=== PATIENT | male | born 1955 | race Caucasian/White ===

== ENCOUNTER 2018-06-17 16:03 | Inpatient (IN) ==
[2018-06-17 17:29] LABS: BASO# 0.03 X1000 (0.0-0.2); BASO% 0.3 % (0.0-0.8); EOS# 0.24 X1000 (0.0-0.7); EOS% 2.1 % (0.0-10.0); HEMATOCRIT 37.5 % (42.0-52.0); HEMOGLOBIN 12.1 g/dL (14.0-18.0); IMM GRAN# 0.04 X1000 (0.0-0.04); IMM GRAN% 0.3 % (0.0-0.5); LYMPH# 2.09 X1000 (1.2-3.4); LYMPH% 18.2 % (20.5-51.1); MCH 27.4 PG (27-31); MCHC 32.3 g/dL (33-37); MCV 84.8 FL (81-99); MONO# 1.58 X1000 (0.11-0.59); MONO% 13.8 % (1.7-9.3); MPV 10.4 FL (7.4-10.4); NEUT# 7.48 X1000 (1.4-6.5); NEUT% 65.3 % (42.2-75.2); PLT 239 X1000 (130-400); RBC 4.42 XMIL (4.7-6.1); RDW 16.9 % (11.5-14.5); WBC 11.46 X1000 (4.8-10.8)
[2018-06-17 17:48] LABS: AGAP 9; ALBUMIN 2.8 g/dL (3.5-5.0); ALKALINE PHOSPHATASE 132 U/L (32-122); BUN 9 mg/dL (8-22); CALCIUM 8.3 mg/dL (8.8-10.2); CHLORIDE 98 mmol/L (98-107); COSMO 278; CREATININE 0.7 mg/dL (0.7-1.2); ESTIMATED GFR > 60; GLUCOSE 101 mg/dL (70-104); GOT 89 U/L (10-34); GPT 32 U/L (10-44); POTASSIUM 3.5 mmol/L (3.5-5.1); SODIUM 140 mmol/L (136-145); TCO2 33 mmol/L (25-35); TOTAL PROTEIN 7.4 g/dL (6.3-8.3)
[2018-06-17 18:24] LABS: INR 1.38; PROTIME 17.7 Seconds (11.0-16.0)
[2018-06-17 18:25] LABS: PTT 34.5 Seconds (22.3-41.8)
--- NOTE | 2018-06-17 18:27 | PROVIDER DOCUMENTATION ---
HPI-Abdominal Pain/GI Problem - General Chief Complaint: Edema Stated Complaint: LIVER FAILURE Time Seen by Provider: 06/17/18 17:59 Source: patient, family Allergies/Adverse Reactions: Patient Allergies Allergy/AdvReac Type Severity Reaction Status Date / Time No Known Allergies Allergy Verified 03/20/18 15:31 Home Medications: Home Medication List Medication Instructions Recorded Confirmed Last Taken Type Alprazolam [Xanax] 0.25 mg PO BID 03/10/18 03/20/18 03/13/18 21:00 History Furosemide 40 mg PO DAILY #30 tab 03/10/18 03/20/18 03/20/18 09:00 Rx Lactulose 30 ml PO TID 03/10/18 03/20/18 03/19/18 20:00 History Metoprolol Succinate 50 mg PO DAILY 03/10/18 03/20/18 03/20/18 09:00 History Omeprazole 40 mg PO DAILY 03/10/18 03/20/18 03/20/18 09:00 History Oxycodone I.r. [Oxy Ir] 5 mg PO Q3H PRN PRN 03/10/18 03/20/18 03/13/18 21:00 History Rifaximin [Xifaxan] 550 mg PO BID 03/10/18 03/20/18 03/20/18 09:00 History Spironolactone [Aldactone] 50 mg PO DAILY #30 tab 03/10/18 03/20/18 03/20/18 09:00 Rx Hydroxyzine Pamoate [Vistaril] 25 mg PO TID PRN PRN #20 cap 03/20/18 Unknown Rx Lactulose 30 ml PO TID #270 ml 03/20/18 Unknown Rx - History of Present Illness-ABD Nature of Presenting Problems: Patient is a 62yo M who presents w/ c/o abdomen swelling, RUQ abdominal pain, bilateral lower extremity swelling, and difficulty urinating x2 weeks. Reports he was admitted at [facility] for 2 months in January 2018 for liver failure and went to Rehab in March 2018. States he was sent home with medication prescriptions for liver failure, however has been unable to afford them as he does not have insurance. C/o only being able to "pee a tablespoon." Patient reports he used to be an alcoholic, however has quit drinking since being diagnosed with liver failure. Patient also reports he feels like his heart is "jumping around." Denies any fever/chills, CP, or SOB. Abdominal Pain Onset Location: reports: RUQ, generalized abdomen Pain Radiation: reports: no radiation Quality of Pain: reports: sharp, throbbing Severity in ED: reports: moderate Onset/Duration: reports: other (2 weeks) Timing: reports: still present, getting worse Activities at Onset: reports: none Exposure to sick contacts?: No Modifying Factors: improves with: nothing Associated Symptoms: reports: genitourinary problems, loss of appetite. denies: chest pain, diaphoresis, fever/chills, nausea, shortness of breath, vomiting Dark Stools Present?: reports: none noticed Rectal Bleeding: reports: none Rectal Pain: reports: none Emesis Description: reports: none Bruising or Bleeding Gums?: No Similar Symptoms Previously?: No Recently seen or treated by another doctor?: No Review of Systems - Adult - REVIEW OF SYSTEMS - ADULT Constitutional: denies: chills, fever Eyes: reports: no symptoms reported Ears, Nose, Mouth & Throat: reports: no symptoms reported Cardiovascular: reports: irregular heart rate. denies: chest pain, syncope Respiratory: denies: cough, shortness of breath Gastrointestinal: reports: see HPI, abdominal pain, poor appetite. denies: nausea, vomiting Genitourinary: reports: see HPI, urinary retention Musculoskeletal: reports: no symptoms reported Integumentary: reports: no symptoms reported Neurological: reports: no symptoms reported Psychiatric: reports: no symptoms reported Endocrine: reports: no symptoms reported All Other Systems: Reviewed and Negative Past History - Adult - PAST MEDICAL HISTORY-ADULT Review of Records: reports: Old Records Reviewed, Nursing Assessment Review, Medications Reviewed Major Childhood Illnesses: reports: denies history Cardiovascular: reports: HTN Respiratory: reports: denies history Gastrointestinal: reports: GERD, liver disease Obstetrical/Gynecological: reports: denies history Genitourinary: reports: denies history Musculoskeletal: reports: denies history Neurological: reports: denies history Psychiatric: reports: denies history Endocrine/Immune: reports: denies history Other Conditions: reports: denies history Additional History: alcoholism, cirrhosis of the liver - PRIOR SURGERIES/PROCEDURES Surgical/Procedure History: reports: none - IMMUNIZATION STATUS Childhood Immunizations: See Nurse Assessment Flu Vaccine: See Nurse Assessment - FAMILY HISTORY Family History: reviewed, not pertinent - SOCIAL HISTORY Alcohol Use Frequency: sober (former use) Physical Exam-General - PHYSICAL EXAM-ADULT Initial Vital Signs Reviewed: Yes - CONSTITUTIONAL General Appearance: alert, mild distress - EYES Eyes: PERRL/EOMI, pink conjunctivae - HEAD, EARS, NOSE, MOUTH & THROAT HENMT: normocephalic/atraumatic, moist mucous membranes - NECK Neck: full range of motion, supple - RESPIRATORY Respiratory: chest non-tender, lungs clear, normal breath sounds, no pleuratic chest pain, no respiratory distress, no accessory muscle use - CARDIOVASCULAR Cardiovascular: no murmur, irregularly irregular. negative: no edema (Bilateral +2 lower extremity edema) - GASTROINTESTINAL (ABDOMEN) Abdominal Exam: distended (ascites), tenderness (RUQ) - LYMPHATIC Lymphatic: no adenopathy - MUSCULOSKELETAL Back Exam: normal inspection Extremity: normal range of motion, non-tender - SKIN Integumentary: warm/dry - NEUROLOGIC Neurologic: grossly normal - PSYCHIATRIC Psych/Mental Status: normal mood/affect, normal thought content, normal thought process, oriented x 3 Progress - PLAN OF CARE/RESULTS Progress/Plan/Lab Results: Vital Signs - 8 hr 06/17/18 16:12 06/17/18 17:57 Temperature 98.7 F Pulse Rate 114 H 102 H Respiratory Rate 20 17 Blood Pressure 126/90 142/104 O2 Sat by Pulse Oximetry 96 94 L Laboratory Results - last 24 hr 06/17/18 06/17/18 06/17/18 17:20 17:20 17:20 WBC 11.46 H RBC 4.42 L Hgb 12.1 L Hct 37.5 L MCV 84.8 MCH 27.4 MCHC 32.3 L RDW Std Deviation 16.9 H Plt Count 239 MPV 10.4 Immature Gran % (Auto) 0.3 Neut % (Auto) 65.3 Lymph % (Auto) 18.2 L Burnet % (Auto) 13.8 H Eos % (Auto) 2.1 Baso % (Auto) 0.3 Immature Gran # (Auto) 0.04 Neut # (Auto) 7.48 H Lymph # (Auto) 2.09 Burnet # (Auto) 1.58 H Eos # (Auto) 0.24 Baso # (Auto) 0.03 Sodium 140 Potassium 3.5 Chloride 98 Carbon Dioxide 33 Anion Gap 9 BUN 9 Creatinine 0.7 Estimated GFR/1.73 m2 > 60 BUN/Creatinine Ratio 13 Glucose 101 Calculated Osmolality 278 Calcium 8.3 L Total Bilirubin 1.30 H AST 89 H ALT 32 Alkaline Phosphatase 132 H Hug-P-Tabpdetafkw Pept 256 H Total Protein 7.4 Albumin 2.8 L Globulin 5.0 Albumin/Globulin Ratio 1.0 Orders Category Date Time Status Nursing- Obtain EKG ONCE Care 06/17/18 18:05 Active Saline Loc NOW Care 06/17/18 16:47 Active AMMONIA [CHEM] Stat Lab 06/17/18 18:07 Ordered BNP [PRO B-NATRIURETIC PEPTIDE] Stat Lab 06/17/18 17:20 Completed CBC WITH DIFF [HEME] Stat Lab 06/17/18 17:20 Completed COMPREHENSIVE METABOLIC PANEL [CHEM] Stat Lab 06/17/18 17:20 Completed MAGNESIUM [CHEM] Stat Lab 06/17/18 17:20 Received PROTIME WITH INR [COAG] Stat Lab 06/17/18 17:20 Received PTT [COAG] Stat Lab 06/17/18 17:[address] W/POSS RFLX CULT [URINALYSIS] Stat Lab 06/17/18 18:07 Uncollected EKG [EKG] Stat Ther 06/17/18 18:05 Ordered Result Diagrams: 06/17/18 17:20 06/17/18 17:20 - CONSULTS/PCP/HOSPITALIST Notification #1 *Consult/PCP/Hospitalist*: MD Jarred Time Discussed: 19:53 Reason/Comments: Ascites/cirrhosis #2 Consult: Emily Estevze Time Discussed: 19:57 Reason/Comments: Ascites, cirrhosis Consult Disposition: Admit Departure - Departure Date of Disposition Decision: 06/17/18 Time of Disposition Decision: 19:57 DIAGNOSIS: Peripheral edema Ascites Qualifiers: Ascites type: due to alcoholic cirrhosis Qualified Code(s): K70.31 - Alcoholic cirrhosis of liver with ascites Cirrhosis Qualifiers: Hepatic cirrhosis type: alcoholic cirrhosis Ascites presence: with ascites Qualified Code(s): K70.31 - Alcoholic cirrhosis of liver with ascites Disposition: ADMITTED INPATIENT 09 Certified Medical Emergency: Emergent Condition: Stable Referrals and Follow-Ups: None,PCP [Primary Care Provider] - - Critical Care Note This patient required my direct & personal management of CC.: No Attestation - Physician/ FLO Attestation Patient care was provided by Advanced Practice Provider:: Yes Advanced Practice Provider:: Nubia Gómez Advanced Practice Provider documentation review:: The Mid-level provider documentation, treatment plan and medical decision making was reviewed by the physician who agrees with all treatment and medical decision making by the MLP. The physician spent face to face time with patient:: No Advanced Practice Provider documentation review:: Supervising physician onsite and consulted in the evaluation and care of this patient. The physician did not have a face to face encounter with the patient.
--- NOTE | 2018-06-17 19:07 | EKG Report ---
Test Performed on : 06/17/2018 6:17:12 PM Test Reason : Irregular HR Blood Pressure : / mmHG Vent. Rate : 123 BPM Atrial Rate : 123 BPM P-R Int : 152 ms QRS Dur : 088 ms QT Int : 382 ms P-R-T Axes : 024 053 013 degrees QTc Int : 546 ms Sinus tachycardia. with premature supraventricular complexes. and fusion complexes Otherwise normal ECG When compared with ECG of 25-DEC-2017 09:03, fusion complexes are now present Unconfirmed Result
[2018-06-17 19:14] LABS: BILIRUBIN URINE 2+ (NEGATIVE); BLOOD URINE NEGATIVE (NEGATIVE); CLARITY CLEAR (CLEAR); COLOR AMBER; GLUCOSE URINE NEGATIVE (NEGATIVE); KETONE URINE 1+(Small) mg/dL (NEGATIVE); LEUKOCYTES URINE TRACE (NEGATIVE); NITRITE URINE NEGATIVE (NEGATIVE); PH URINE 6.5; PROTEIN URINE 1+(30 mg/dL) mg/dL (NEGATIVE); UROBILINOGEN URINE 12 mg/dL
[2018-06-17 19:15] LABS: URINE SOURCE CLEAN CATCH
[2018-06-17 19:16] LABS: URINE EPITHELIAL CELLS >10 /HPF (<10); URINE RBC <10 /HPF (<10); URINE WBC <10 /HPF (<10)
[2018-06-17 19:17] LABS: URINE BACTERIA 1+ /HFP; URINE CAST NONE SEEN /LPF; URINE CRYSTAL NONE SEEN /HPF; URINE YEAST NONE SEEN /HPF
[2018-06-17] MEDS ORDERED: MAGNESIUM SULFATE 2 GM/S.W.I. 2 GM/50 ML IVPB IV ONE (19:27)
[2018-06-17] MEDS ORDERED: MORPHINE IV ONE (20:19)
[2018-06-17] MEDS ORDERED: ATIVAN IV ONE (20:25)
[2018-06-17] MEDS ORDERED: LASIX PO ONE (23:58)
[2018-06-18] MEDS ORDERED: DUONEB (A & A) INH PRN (00:02)
[2018-06-18] MEDS ORDERED: NICODERM PATCH TD PRN (00:05)
[2018-06-18] MEDS: LACTULOSE PO SCH ×3 (00:18→21:32)
[2018-06-18 00:42] LABS: AMYLASE 42 U/L (20-200); GGT 80 U/L (11-50); LIPASE 23 U/L (13-60)
[2018-06-18 00:49] LABS: UR AMPHETAMINES QUAL NONE DETECTED (NONE DETECT); UR BARBITUATES QUAL NONE DETECTED (NONE DETECT); UR BENZODIAZEPIN QUAL PRESUMPTIVE POSITIVE (NONE DETECT); UR COCAINE QUAL NONE DETECTED (NONE DETECT); UR METHADONE QUAL NONE DETECTED (NONE DETECT); UR METHAMPHETAMINE QUAL NONE DETECTED (NONE DETECT); UR OPIATES QUAL PRESUMPTIVE POSITIVE (NONE DETECT); UR OXYCODONE QUAL NONE DETECTED (NONE DETECT)
[2018-06-18 00:50] LABS: UR CANNABINOIDS QUAL NONE DETECTED (NONE DETECT); UR PCP QUAL NONE DETECTED (NONE DETECT); UR PROPOXYPHENE QUAL NONE DETECTED (NONE DETECT); UR TCA QUAL NONE DETECTED (NONE DETECT)
[2018-06-18 06:34] LABS: BASO# 0.03 X1000 (0.0-0.2); BASO% 0.4 % (0.0-0.8); EOS# 0.45 X1000 (0.0-0.7); HEMATOCRIT 34.2 % (42.0-52.0); HEMOGLOBIN 11.2 g/dL (14.0-18.0); IMM GRAN# 0.03 X1000 (0.0-0.04); IMM GRAN% 0.4 % (0.0-0.5); LYMPH# 1.57 X1000 (1.2-3.4); LYMPH% 20.9 % (20.5-51.1); MCH 28.1 PG (27-31); MCHC 32.7 g/dL (33-37); MCV 85.9 FL (81-99); MONO# 1.21 X1000 (0.11-0.59); MONO% 16.1 % (1.7-9.3); MPV 10.9 FL (7.4-10.4); NEUT# 4.21 X1000 (1.4-6.5); NEUT% 56.2 % (42.2-75.2); PLT 215 X1000 (130-400); RBC 3.98 XMIL (4.7-6.1); RDW 16.6 % (11.5-14.5)
[2018-06-18] MEDS ORDERED: PRILOSEC PO SCH (07:00)
[2018-06-18 07:04] LABS: AGAP 7; ALB/GLOB RATIO 0.6; ALBUMIN 2.2 g/dL (3.5-5.0); ALKALINE PHOSPHATASE 107 U/L (32-122); BUN 9 mg/dL (8-22); CHLORIDE 102 mmol/L (98-107); COSMO 281; CREATININE 0.6 mg/dL (0.7-1.2); ESTIMATED GFR > 60; GLUCOSE 84 mg/dL (70-104); GOT 69 U/L (10-34); GPT 24 U/L (10-44); MAGNESIUM 1.7 mg/dL (1.5-2.7); POTASSIUM 3.7 mmol/L (3.5-5.1); SODIUM 142 mmol/L (136-145); TCO2 33 mmol/L (25-35); TOTAL PROTEIN 5.9 g/dL (6.3-8.3)
--- NOTE | 2018-06-18 07:31 | Diag Imaging Result Doc PS360 ---
EXAM: CHEST-PORTABLE HISTORY: SOB TECHNIQUE: Chest single view COMPARISON: 01/13/2018 FINDINGS: The lungs are well expanded. The heart is not enlarged. The vessels are not distended. There are mild increased markings in the left lung base. No effusion identified. IMPRESSION: Scarring versus a small infiltrate in the left lung base. Electronically signed by Asael Ma 06/18/2018 7:29 AM
[2018-06-18] MEDS: XANAX PO PRN (08:20)
[2018-06-18] MEDS ORDERED: SODIUM CHLORIDE 0.9% INJ SCH (08:45)
--- NOTE | 2018-06-18 10:36 | GASTROENTEROLOGY CONSULTATION ---
DATE: 06/18/2018 PRIMARY CARE DOCTOR: None. REASON FOR CONSULTATION: 1. Liver cirrhosis with ascites 2. History of chronic hepatitis C. 3. History of alcoholism. HISTORY OF PRESENT ILLNESS: Mr. Mcclain is a 62-year-old male who was admitted on 06/17/2018 for symptoms of abdominal swelling and ascites and abdominal discomfort. He also complained of bilateral lower extremity swelling and difficulty urinating for the last 2 weeks. He was recently discharged from [facility] [place] in March 2018 after treatment of liver failure. The patient cannot afford his medications as he does not have insurance. He is on disability but his Medicare is applied for. According to the patient, he quit drinking 4 months ago. Prior to that, he used to drink 12 to 18 beers a day as well as half pint to a pint of hard liquor every day. He did that for 40-50 years. He quit about 4 months ago when he was diagnosed with liver failure. The patient also has history of chronic hepatitis C which he attributes to his history of intravenous drug abuse. He quit that for many years. He is currently single and lives alone. The patient denies any nausea, vomiting, vomiting blood, or passing blood in the stools. He denies any fevers, rigors, or chills. PAST MEDICAL HISTORY: 1. Pneumonia. 2. Alcoholic liver disease complicated with cirrhosis and ascites. 3. Metabolic encephalopathy. 4. Hypertension. 5. Chronic hepatitis C. 6. History of alcoholism, quit 4 months ago. 7. History of drug abuse, quit many years ago. 8. GERD. 9. Chronic pain. PAST SURGICAL HISTORY: Recurrent paracentesis. FAMILY HISTORY: He is a single. SOCIAL HISTORY: He lives alone. He smokes 1 pack a day. He quit drinking about 4 months ago. He quit intravenous drug abuse many years ago. ALLERGIES: No known drug allergies. MEDICATIONS AT HOME: None. He could not afford medicines at home although described a bunch of medicines from his last admission a few months ago. MEDICATIONS IN THE HOSPITAL: Include 1. Albuterol/ipratropium. 2. Alprazolam. 3. Folic acid. 4. Lasix. 5. Lactulose. 6. Metoprolol. 7. Multivitamin. 8. NicoDerm. 9. Protonix. 10. Vitamin K 1 dose as INR is 1.3. 11. Xifaxan 550 mg p.o. b.i.d. 12. Spironolactone 50 mg daily. 13. Thiamine 100 mg once daily. He is currently NPO. He is down in ultrasound getting a paracentesis. REVIEW OF SYSTEMS: Denies any fevers, rigors or chills, chest pain. Denies any nausea, vomiting, vomiting blood, passing blood in the stools. Does complain of abdominal discomfort because of abdominal swelling. Does have history of chronic pain. Denies any neurologic complaints. PHYSICAL EXAMINATION: Vital Signs: Temperature 98.8, pulse of 72, respiratory rate 16, blood pressure 130/81, saturating 96% on nasal cannula. Body weight of 166 pounds 9 ounces. BMI 27.7 kg. General: Moderately built, moderately nourished, lying in bed, in no acute distress. HEENT: Pale conjunctiva. Mild icterus. Pupils equal, react to light. Neck: Supple. Abdomen: Distended, tympanic. Mild discomfort in the periumbilical region; No rebound. Extremities: No cyanosis, clubbing. Bilateral lower extremity noted. Neurologic: Alert, awake, oriented. LABORATORY DATA: Hemoglobin and hematocrit are 11.2 and 34.2, white count of 7.5, platelet count of 215,000. Sodium 142, potassium 3.7, chloride 102, bicarb 33, anion gap 7, BUN of 9, creatinine 0.6, glucose of 84, calcium is 8, magnesium 1.7. Total bilirubin is 1.70, AST 69, ALT 24, alkaline phosphatase 107, total protein 4.9, albumin of 2.2. Urinalysis showing 1+ protein, 1+ ketones. Toxicology screen positive for opioids and benzodiazepine. Urine culture is pending. Chest x-ray done today showed scarring versus small infiltrate left lung base. Prior imaging from last admission ultrasound done on 01/11/2018 showed moderate amount of ascites. Gallbladder has a thickened wall. Chest/abdomen/pelvis CT done on 12/16/2017 showed small to moderate amount of abdominal pelvic ascites, nonspecific small hepatic lesion, probable mass superiorly which is nonspecific but could be hemangioma. IMPRESSION AND PLAN: 1. Decompensated cirrhosis secondary to a combination of alcohol and chronic hepatitis C. In this regard, will watch the patient's liver enzymes and labs daily. 2. Coagulopathy. Will give 1 dose of vitamin K 10 mg IV. 3. Ascites: Patient has gone down to [facility] for paracentesis. We will order the fluid studies. 4. We will check AFP as the patient had a question of liver lesions on the prior CAT scan. We will also order abdominal ultrasound which has been ordered for today. We will review the results of that. 5. Alcoholism. The patient will continue with multivitamin, B1. 6. The patient has chronic hepatitis C, needs to be evaluate as an outpatient for possible treatment. He has applied for Medicare for now. 7. Gastrointestinal prophylaxis with proton pump inhibitor, Protonix once daily. 8. Bowel regimen. He is on lactulose. We will follow along. The above plan discussed with the patient and all questions answered. Please call us with any concerns. cc: Akil Miguel MD MTDD
--- NOTE | 2018-06-18 11:07 | Diag Imaging Result Doc PS360 ---
US ABD PARACENTESIS W S/I - 06/18/2018 INDICATION: Ascites, Alcoholic Cirrhosis COMPARISON: 01/03/2018 FINDINGS: The risks and benefits of the procedure were discussed with the patient. All questions were answered. Written and verbal consent was obtained. Ultrasound scanning demonstrated ascites. Overlying skin was prepped and draped in sterile fashion. Local anesthesia was achieved with injection of 10 cc 1% lidocaine. The paracentesis catheter was advanced until the return of ascites fluid. 3.5 L of dark red serosanguineous fluid was aspirated. The catheter was withdrawn intact. There were no known complications. IMPRESSION: Technically successful ultrasound-guided paracentesis with no known complications. Electronically signed by Joseluis Finch 06/18/2018 11:05 AM
[2018-06-18] MEDS ORDERED: DULCOLAX PR ONE (11:08)
--- NOTE | 2018-06-18 11:12 | Diag Imaging Result Doc PS360 ---
EXAM: US ABDOMEN-COMPLETE INDICATION: Ascites COMPARISON: 12/22/2017 FINDINGS: There is moderate ascites. No gallstones are appreciated. The gallbladder wall is thickened measuring up to 6 mm in thickness. However, this is assumed to be due to the surrounding ascites. The common bile duct is normal in diameter. Sonographic Santiago's sign was reported to be negative. The contour of the liver is diffusely nodular compatible with cirrhosis. No discrete hepatic mass is identified. Portal venous flow is hepatopetal. The pancreas is partially obscured by gas. Visualized portion is unremarkable. The mid and distal aorta are obscured as well. The remainder of the aorta and IVC are unremarkable. The spleen is unremarkable. The kidneys are grossly unremarkable. IMPRESSION: 1.Cirrhotic liver. 2.Moderate ascites. 3.Thickened gallbladder wall that is assumed to be due to the surrounding ascites. Electronically signed by Joseluis Finch 06/18/2018 11:09 AM
[2018-06-18] MEDS: FOLIC ACID PO SCH (11:27)
[2018-06-18] MEDS: TOPROL XL PO SCH (11:27)
[2018-06-18] MEDS: ALDACTONE PO SCH (11:27)
[2018-06-18] MEDS: VITAMIN B-1 PO SCH (11:27)
[2018-06-18] MEDS: THERA M PLUS PO SCH (11:28)
[2018-06-18] MEDS: VITAMIN K 10 MG in NS 50 ML IV SCH (11:28)
[2018-06-18] MEDS: XIFAXAN PO SCH ×2 (11:28→22:31)
[2018-06-18 11:39] LABS: GLUCOSE BODY FLUID 86 mg/dL; LDH BODY FLUID 99 U/L; TOTAL PROT BODY FLUID 1.3 g/dL
[2018-06-18 11:40] LABS: ALBUMIN BODY FLUID 0.5 g/dL
[2018-06-18 11:41] LABS: BODY FLUID SOURCE PERITONEAL FLUID; WBC BF 273 /cumm
[2018-06-18 11:44] LABS: MONOS 65 %; POLYS 35 %
[2018-06-18] MEDS: PROTONIX IV SCH (12:37)
--- NOTE | 2018-06-18 15:10 | HISTORY AND PHYSICAL ---
PRIMARY CARE PROVIDER: Patient does not have a primary care provider. CHIEF COMPLAINT: Abdominal swelling and discomfort and bilateral lower extremity edema. HISTORY OF PRESENT ILLNESS: Mr. Mcclain is a 62-year-old male who has a past medical history most notable for liver cirrhosis, chronic hepatitis C, and ascites. The patient was recently admitted at the end of November of 2017 and was discharged in January 2018 to rehab. He did spend some time at rehab and then was discharged home. The patient states since being discharged from rehab that he has not been able to afford his prescription medications. The patient states that he has been trying to apply for Medicare, though unfortunately, he is still legally to his , though they have not been together for approximately 20 years. He states that his Medicare application is requiring for her to fill out some forms and that she is refusing to cooperate with this and secondary to this he has not been able to obtain insurance and, unfortunately, along with other financial complications cannot obtain prescriptions either. The patient states that for approximately a few weeks now he has had increased swelling in his bilateral lower extremities. He states that his abdomen also did begin swelling over the past couple of days. This has progressively gotten much worse. He does have 2 to 3+ pitting edema noted in bilateral extremities. This extends all the way up to his mid thighs bilaterally. He also does have abdominal distention noted. His abdomen is firm. He is reporting not abdominal pain but discomfort, stating that it feels like it is stretched, like it is going to "pop." He also complains over the last 1-2 days of some scrotal swelling. He states that he has just in the past couple of days had some difficulty with increased urinary frequency as well as a decrease in the amount of urine he is able to put out each time he tries to urinate. Other than this, the patient denies any other symptoms at this time. He denies any headache, dizziness, chest pain. Though he did report that he is now having some dyspnea with exertion, just in the last 1-2 days since his swelling has gotten worse. He denies any nausea, vomiting, or diarrhea. He has reported some constipation. States that his last bowel movement was approximately 2-3 days ago and he has been having to use magnesium citrate at home to have a bowel movement at times. Though he is reporting urinary frequency, he denies any pain or burning with urination. The patient states that he has not drank since he was diagnosed with liver disease since being admitted back in November of 2017. Though he does report that he still smokes at this time, approximately 1 pack per day. He denies any illicit drug use. At this time the patient will be admitted for further treatment and evaluation of alcoholic cirrhosis and ascites. REVIEW OF SYSTEMS: A 14 point review of systems was conducted with the patient and all were negative except for pertinent positives mentioned above in HPI. PAST MEDICAL HISTORY: 1. Hypertension. 2. Gastroesophageal reflux disease. 3. Chronic pain. 4. History of alcohol abuse. 5. History of hepatic encephalopathy. 6. History of hepatitis C. 7. Alcoholic cirrhosis. PAST SURGICAL HISTORY: The patient denies any previous surgeries other than his previous paracentesis that was performed. SOCIAL HISTORY: The patient currently does live alone. He denies any alcohol use at this time. States he has not drank since November of 2017. Though he did report previously that for many years that he drank initially 12-18 beers a day, though toward the end he said that he started drinking whiskey and vodka up to at least a pint a day. He denied any current illicit drug use. The patient at this time, unfortunately, is having complications obtaining medical insurance and does have some financial complications, as well as unable to afford his medications. He states that even though his and him have been for 20 years, they are still legally and due to this, Medicare is requesting her to complete some forms that she is not being cooperative in doing so and this, according to the patient, has delayed him obtaining Medicare coverage. He also did request assistance with any recommendations to where he can go to begin the process of being legally / from his . We will place a marriage and family social worker consult for assistance with his Medicare application as well as possibly obtaining assistance to get his prescription medications. I did inform him that marriage and family social worker might have some recommendation on possible free legal activity adjudicator assistance that they may be able to provide him with. ALLERGIES: Patient has no known allergies. HOME MEDICATIONS: The patient states that he is not taking any prescription medicines at this time. DIAGNOSTIC DATA: White blood cell count is 11,460, hemoglobin 12.1, hematocrit 37.5, platelet count is 239,000. PT 17.7, INR is 1.7, PTT is 34.5. Sodium 140, potassium 3.5, chloride 98, serum bicarb 33, BUN 9, creatinine 0.7, glucose 101, calcium 8.3, magnesium 1.4, total bilirubin is 1.3, GGT is 80, AST is 89, ALT 32, alkaline phosphatase is 132, ammonia level is 45. ProBNP 256. Amylase 42, lipase 23. Serum alcohol was 0. Urinalysis was obtained via clean catch. It was positive for protein, ketones, bilirubin, and trace white blood cells, as well as greater than 10 epithelial cells and 1+ bacteria. It was negative for blood or nitrites. Urine drug screen was positive for opiates and benzodiazepines. The patient did receive both of these in the ER at [facility] and his urine was obtained after the administration of these medication. EKG did show sinus tachycardia with premature supraventricular complexes at a rate of 123, though since that time the patient's heart rate has improved and is maintaining in the 70s to 90s. We are awaiting a pending chest x-ray given that the patient had reported some shortness of breath. PHYSICAL EXAMINATION: VITAL SIGNS: Temperature 98.5 degrees, heart rate 64, respirations 19, blood pressure is 166/100, oxygen saturation is 98% on nasal cannula at 1.5 L. GENERAL: Mr. Mcclain is a 62-year-old male who is resting in the inpatient bed. He was in no acute distress. He was awake, alert, and able to answer questions appropriately. HEENT: Head is atraumatic, normocephalic. Pupils are equal, round, reactive to light, were 3 mm bilaterally and brisk. The patient does have slight jaundice noted to sclera bilateral eyes. Oral mucosa is moist. Oropharynx is clear. NECK: Supple. Trachea midline. CARDIOVASCULAR: Patient has S1, S2 present. No murmurs, gallops, or rubs appreciated, with a regular rate and rhythm. PULMONARY: Patient has symmetrical chest expansion bilaterally. Lung sounds are clear to auscultation in bilateral full watt. ABDOMEN: Firm to the touch. It is distended, though the patient did not report any overt tenderness upon palpation. He reports that his abdomen does have discomfort due to a stretching type feeling like it is going to "pop." Bowel sounds were present in all 4 quadrants. EXTREMITIES: No cyanosis noted, though the patient does have 2 to 3+ pitting edema noted in bilateral lower extremities, from his feet extending all the way up to his mid bilateral thighs. INTEGUMENTARY: The patient's skin is pink, warm, and dry. NEUROLOGICAL: Patient is alert and oriented to person, place, time, and situation. He is able to move all extremities. There do not appear to be any focal neurological deficits noted at this time. ASSESSMENT AND PLAN: 1. Alcoholic cirrhosis. The patient has not been on any of his regularly prescribed medications for this since being discharged from rehab. I did look back and see what he was discharged on previously and we have continued a lot of these same medications. We will go ahead and continue him on Lasix 40 mg daily, as well as Aldactone 50 mg p.o. daily. We have continued his Xifaxan and have also placed him on lactulose. This will also assist in the patient's reported constipation. We will continue with folic acid, multivitamin, and thiamine supplementation as well. We have placed a consult with Dr. Stern of Gastroenterology and we will await his evaluation and further recommendations for management. 2. Ascites. The patient abdomen is very distended. It is firm to the touch. Patient is reporting some abdominal discomfort and stretching type feeling. Given this, we have placed orders for him to be NPO after midnight. We will perform an abdominal ultrasound in the morning, as well as an ultrasound-guided paracentesis. We have placed orders for peritoneal fluid studies as well. 3. Hypertension. We will continue medication of Toprol-XL. 4. Constipation. We will continue with lactulose as previously mentioned. 5. Possible urinary retention. The patient has reported that over the past couple days that he has noticed that he has had some urinary frequency but when he goes to urinate he is only able to urinate a small amount at a time. He has also reported that he has had some scrotal edema. This could be related to his cirrhosis and ascites, though we will initially perform a bladder scan as well as postvoid bladder scans. He did have some trace leukocytes and 1+ bacteria noted on his urinalysis, but the patient is not reporting any pain or burning with urination. Urine culture has been placed. We will await these results and continue to follow. We will do strict intake and output. 6. Nicotine dependence. We have placed orders for a nicotine patch. We will continue to recreational counselor the patient on the importance of smoking cessation during his hospital stay and upon discharge. 7. Venous thromboembolism prophylaxis will be provided with SCDs at this time. We will hold off on any anticoagulants given his procedure in the morning, as well as history of liver disease until he is evaluated by Gastroenterology. The patient has been placed on the medical floor with telemetry. He will have vital signs q.6 hours. Further orders and recommendations pending hospital course, diagnostic studies, and physician evaluation. Dictated by BRIANNE Shipley for Abdi Estevez MD cc: Abdi Estevez MD
--- NOTE | 2018-06-18 15:58 | PROGRESS NOTE ---
DATE: 06/18/2018 SUBJECTIVE: This patient is status post paracentesis, it looks like 3.5 L has been removed with no complications, gastroenterology department following this patient. As per the patient he stopped drinking a few months ago and he has been constipated so I will add suppositories to his treatment. OBJECTIVE: Vital Signs: Temperature 98.3 degrees, pulse 72, respiratory rate 16, blood pressure 120/77, oxygen saturation 99 on 1 L of nasal cannula. HEENT: Head normocephalic. No trauma. PERRLA. Neck: Supple. No JVD. No masses. Central trachea. Chest: Some crepitus at the bases otherwise clear to auscultation. No wheezing. Abdomen: Soft, distended, status post paracentesis. He has a little wound from the paracentesis needle on the right side of the abdomen with no signs of bleeding or discharge, no signs of infection at this point, abdomen is soft. Positive bowel sounds. Extremities: There is 2+ to 3+ lower extremity edema. No clubbing, no cyanosis. Neurologic: The patient is alert, he is oriented x3. No focal deficit. LABORATORY: WBC 7.5, hemoglobin 11.2, hematocrit 34.2, platelets 215,000, sodium 142, potassium 3.7, chloride 102, bicarbonate 33, BUN 9, creatinine 0.6, glucose 84, calcium 8, magnesium 1.7. AST 69, ALT 24, alkaline phosphatase 107, albumin 2.2. ASSESSMENT AND PLAN: 1. Decompensated alcoholic liver cirrhosis/chronic hepatitis C, will continue to monitor, status post paracentesis of 3.5 L. 2. Coagulopathy. Continue with vitamin K as recommended per Gastroenterology Department. 3. Hypertension. Continue home medication. 4. Constipation. I will add suppositories to his lactulose. 5. Possible urinary tract infection. Urine culture so far negative. We will just monitor. He is not complaining of pain or burning sensation at this moment, possible urinary retention, aware. 6. Nicotine dependence. This patient has been highly advised against tobacco use, I will continue with daily cessation education. 7. Deep vein thrombosis prophylaxis with SCDs. 8. Gastrointestinal prophylaxis with PPI. 9. Overall this patient is doing fine. He is status post paracenteses and is feeling much better. We will follow the recommendations of Gastroenterology Department. I do believe this patient can be discharged in the next 24 to 48 hours. cc: Yohannes Waters MD
[2018-06-19 06:30] LABS: BASO# 0.03 X1000 (0.0-0.2); BASO% 0.3 % (0.0-0.8); EOS# 0.49 X1000 (0.0-0.7); EOS% 5.6 % (0.0-10.0); HEMATOCRIT 32.8 % (42.0-52.0); HEMOGLOBIN 10.7 g/dL (14.0-18.0); IMM GRAN# 0.03 X1000 (0.0-0.04); IMM GRAN% 0.3 % (0.0-0.5); LYMPH# 2.22 X1000 (1.2-3.4); LYMPH% 25.3 % (20.5-51.1); MCH 27.9 PG (27-31); MCHC 32.6 g/dL (33-37); MCV 85.6 FL (81-99); MONO# 1.41 X1000 (0.11-0.59); MONO% 16.1 % (1.7-9.3); MPV 10.7 FL (7.4-10.4); NEUT% 52.4 % (42.2-75.2); PLT 219 X1000 (130-400); RBC 3.83 XMIL (4.7-6.1); RDW 16.5 % (11.5-14.5); WBC 8.78 X1000 (4.8-10.8)
[2018-06-19 06:53] LABS: ALB/GLOB RATIO 0.6; ALBUMIN 2.1 g/dL (3.5-5.0); ALKALINE PHOSPHATASE 100 U/L (32-122); BUN 8 mg/dL (8-22); CALCIUM 7.8 mg/dL (8.8-10.2); CHLORIDE 100 mmol/L (98-107); COSMO 272; CREATININE 0.6 mg/dL (0.7-1.2); ESTIMATED GFR > 60; GLUCOSE 98 mg/dL (70-104); GOT 61 U/L (10-34); GPT 22 U/L (10-44); POTASSIUM 3.5 mmol/L (3.5-5.1); SODIUM 137 mmol/L (136-145); TCO2 39 mmol/L (25-35); TOTAL BILIRUBIN 1.06 mg/dL (0.20-1.00); TOTAL PROTEIN 5.6 g/dL (6.3-8.3)
[2018-06-19] MEDS ORDERED: LASIX PO SCH (09:00)
--- NOTE | 2018-06-19 10:11 | PROGRESS NOTE ---
DATE: 06/19/2018 SUBJECTIVE: Presented with abdominal swelling, discomfort, bilateral lower extremity edema. A 62- year-old with past medical history most notable for cirrhosis, chronic hepatitis C, and has ascites. The patient recently admitted in November 2017, discharged in January 2018 to rehab. He has spent some time in rehab and discharged home. He has been discharged from rehab and not been able to afford his prescription medication. States that he was trying to apply for Medicare. Unfortunately, still legally to his , though they have not been together for 20 years. He states his Medicare application has required for her to fill out some of it and she is, in his words, refusing to cooperate and not able to get insurance. The patient approximately for a few weeks now has had swelling in his lower extremities and his belly, and it got worse with 2+ to 3+ pitting edema, and all went up to his thighs bilaterally. He has not drank since he was diagnosed with liver disease back in November 2017. He still smokes at this time about a pack a day. PAST MEDICAL HISTORY: 1. Hypertension. 2. Gastroesophageal reflux disease. 3. Chronic pain syndrome. 4. History of alcohol abuse. 5. History of hepatic encephalopathy. 6. History of hepatitis C. 7. Alcoholic cirrhosis. He was admitted with alcoholic cirrhosis. He did get a paracentesis, and GI is following, Dr. Miguel. Abdominal ultrasound done on 06/18. Cirrhotic liver, moderate ascites, thickened gallbladder, probably due to surrounding ascites. He had an ultrasound-guided paracentesis yesterday successful, draw of 3.5 liters of dark red serosanguineous fluid. He is feeling much better and is asking to go home. OBJECTIVE: Vital Signs: On exam today, temperature 99.8 degrees, pulse 72, respirations 12, blood pressure 114/58. Eyes: Pupils are equal and round. Lungs: Clear in all lung watt. Cardiovascular exam: Regular rhythm and rate without murmur or S3. Abdomen: Soft. Skin: Warm and dry. : Urine output was 450 mL. ASSESSMENT AND PLAN: 1. Decompensated alcoholic liver cirrhosis, chronic hepatitis, received paracentesis and judy off 3.5 liters. 2. Coagulopathy. 3. Hypertension. 4. Constipation. 5. Possible urinary tract infection. So far, cultures negative. Continue to monitor. 6. Nicotine dependence. Advised and reinforced the need to quit tobacco. 7. Deep venous thrombosis prophylaxis. He is on sequential compression devices. 8. Gastrointestinal prophylaxis on proton pump inhibitor. He is feeling better, so he may be able to go home this afternoon. We will discuss with the team. LABORATORY DATA: Review of his lab this morning: CBC: White count 8780, hematocrit is 32, platelet count 219,000. Sodium 137, potassium 3.5, chloride 100. BUN is 8, creatinine 0.6. Albumin 2.1, AST is 61, ALT is 22, alkaline phosphatase 100. cc: Peter Haile MD
[2018-06-19] MEDS: XANAX PO PRN (10:16)
[2018-06-19] MEDS: XIFAXAN PO SCH (10:17)
[2018-06-19] MEDS: TOPROL XL PO SCH (10:18)
[2018-06-19] MEDS: LACTULOSE PO SCH (10:18)
[2018-06-19] MEDS: FOLIC ACID PO SCH (10:18)
[2018-06-19] MEDS: THERA M PLUS PO SCH (10:19)
[2018-06-19] MEDS: ALDACTONE PO SCH (10:19)
[2018-06-19] MEDS: VITAMIN B-1 PO SCH (10:20)
[2018-06-19] MEDS: VITAMIN K 10 MG in NS 50 ML IV SCH (10:20)
[2018-06-19] MEDS: PROTONIX IV SCH (10:20)
--- NOTE | 2018-06-19 11:20 | PROVIDER PROGRESS NOTE ---
Progress Note SUBJECTIVE: No acute overnight events. patient had LVP yesterday with 3.5L of ascites without SBP. He denies complaints today. He admits to not being compliant with low NA diet. OBJECTIVE: Last Vital Signs Temp 99.8 F H 06/19/18 08:10 Pulse 72 06/19/18 08:10 Resp 12 06/19/18 08:10 BP 114/58 06/19/18 08:10 Pulse Ox 90 L 06/19/18 04:30 Height 5 ft 5 in Weight 166 lb 9 oz GEN: awake, alert, NAD HEENT: anicteric, MMM NECK: supple, no jvd PULM: CTAB, no wheezing ABD: distended, BS present, NT, +ascites EXT: 1+ edema b/l NEURO: nonfocal, no asterixis LABS: 06/19/18 06/19/18 06:00 06:00 WBC 8.78 Hgb 10.7 L Plt Count 219 Sodium 137 Potassium 3.5 Chloride 100 Carbon Dioxide 39 H BUN 8 Creatinine 0.6 L Glucose 98 Total Bilirubin 1.06 H AST 61 H ALT 22 Alkaline Phosphatase 100 Total Protein 5.6 L Albumin 2.1 L No SBP on ascitic fluid A/P: Mr. Jeremías Mcclain is a 62 year old man with decompensated treatment naive HCV and ETOH cirrhosis with ascites and prior PSE who presented with worsening ascites. LVP yesterday was negative for SBP. His ascites is likely from nonco mpliance with low Na diet. US liver yesterday was negative for hepatoma. Renal function preserved. No PSE. Patient tolerating PO. #Decompensated HCV/ETOH cirrhosis - Cirrhosis: LFTs stable; low MELD - Ascites: s/p LVP 06/18; started on diuretics, will titrate aldactone to 100mg daily, continue lasix 40; low Na diet - EV: no GI bleeding; stopped PPI given risk of SBP/PNA - PSE: none currently; continue lactulose and rifaximin - HCC: no hepatoma on imaging; repeat US q6mo #ETOH: continue thiamine; recommend folic acid 1mg daily; abstinent from ETOH for last 5 months #HCV: patient will need eventual treatment Patient is ok to be discharged with GI follow-up in next 2-4 weeks.
[2018-06-19 15:43] VITALS: BP 132/82
--- NOTE | 2018-06-19 17:54 | DISCHARGE SUMMARY ---
ADMISSION DATE: 06/17/2018 DISCHARGE DATE: 06/19/2018 PRIMARY CARE PHYSICIAN: He has no primary care physician. HISTORY OF PRESENT ILLNESS/HOSPITAL COURSE: This 62-year-old male with past medical history most notable for liver cirrhosis, chronic hepatitis C, and ascites. Patient was recently admitted in the end of November 2017, discharged in January 2018 to rehab. He did spend some time in rehab and then discharged home. Patient states that since being discharged from rehab, he has not been able to afford prescription medications. The patient states he has been trying to apply for Medicare although unfortunately he has had some trouble legally with this so continues to attempt to do that. He states his abdomen began swelling for several days and got much worse. He got 2 to 3+ pitting edema bilateral extremities and all the way to his thighs and abdominal distention. Abdomen felt firm, so came to the emergency room, admitted, underwent thoracentesis and of course felt much better. Thoracentesis was done 06/18/2018 and they took off a 3.5 L of dark red serosanguineous fluid. Had no abdominal pain. No fever. So felt like he had decompensated cirrhosis secondary to a combination of alcohol and chronic hepatitis C. He did get some vitamin K 10 mg IV and underwent paracentesis. I am going to check AFP, alpha fetoprotein, and there was question of liver lesions on the CT scan and so plan to get also ultrasound. History of alcoholism. Continue his multivitamin and B1. The patient has chronic hepatitis C, going to evaluate as an outpatient for treatment and then gastrointestinal prophylaxis with proton pump inhibitor Protonix once a day. Continue his bowel regimen. The patient followed by Dr. Stern. He has cirrhosis. Liver function tests are stable. Low MELD score. Ascites with paracentesis on 06/18/2018. No GI bleeding. As far as hepatitis C, needs eventual treatment and he would like to go home today so we will have him follow up in the GI Clinic. Continue the Aldactone 100 mg a day and the thiamine every day. cc: Peter Haile MD
[2018-06-20] MEDS ORDERED: ALDACTONE PO SCH (09:00)
== END 2018-06-19 18:49 | disposition home or self-care (01) | DRG 434 ==
LOC: P.ED 16:03 → 4N 20:52 → SUATTDRO 20:52
PROVIDERS: ATTEND Emergency Medicine
CPT/HCPCS: 49083; 71010; 71045; 76700; 80053; 80101; 80104; 80301; 80305; 80307; 80320; 80324; 80345; 80346; 80353; 80358; 80361; 80365; 81001; 82042; 82055; 82105; 82140; 82150; 82607; 82746; 82945; 82977; 83615; 83690; 83735; 83880; 83992; 84100; 84157; 85025; 85610; 85730; 87070; 87088; 87205; 89051; 93005; 94761; 94799; 96365; 96375; 97161; 99285; A9270; C9113; G0431; G0434; G0477; G0479; G0480; G6040; J2060; J2270; J3430; J3475; S0164